=== PATIENT | female | born 1950 | race Caucasian/White ===

== ENCOUNTER → 2017-03-10 | Outpatient (REF) | payer MEDICARE, OTHER | LOC: M LABDRAW1 14:38 | DX: E04.1 Nontoxic single thyroid nodule (principal) | CPT/HCPCS: 88173 ==

== ENCOUNTER → 2017-03-20 | Outpatient (CLI) | payer MEDICARE, OTHER | LOC: M RAD 13:00 | DX: E05.20 Thyrotoxicosis with toxic multinodular goiter without thyrotoxic crisis or storm (principal) | CPT/HCPCS: 70490 ==

== ENCOUNTER → 2017-04-24 | Outpatient (CLI) | payer MEDICARE, OTHER ==
[~2017-04-24] MED LIST: PROHANCE 279.3MG/ML 15ML VIAL (A9576) As Ordered
== END ==
LOC: M RAD 10:57
DX: R22.1 Localized swelling, mass and lump, neck (principal)
CPT/HCPCS: A9576

== ENCOUNTER → 2018-04-09 | Outpatient (REF) | payer MEDICARE, OTHER | LOC: M LAB REF 15:47 | PROVIDERS: ATTEND Internal Medicine Endocrinology, Diabetes & Metabolism | DX: E04.2 Nontoxic multinodular goiter (principal) ==

== ENCOUNTER → 2019-01-27 | Outpatient (CLI) | payer MEDICARE, OTHER ==
--- NOTE | 2019-01-27 16:23 | REP ---
Soft-tissue neck CT study without contrast: History: Enlarged thyroid gland. Comparison neck CT study is from March 20, 2017. 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 CT findings: There are surgical clips in the supraclavicular soft tissues of the right side of the neck. The previously noted bilobed right neck perivertebral and supraclavicular mass has been removed. There is no evidence of recurrent adenopathy or mass. Thyroid gland is normal in size and fairly homogeneous. No glottic or subglottic airway lesion is seen. No suprahyoid or infrahyoid adenopathy is seen. No other mass or cyst is observed. Visualized paranasal sinuses are clear. Impression: Previously noted right neck mass has been removed in the interval since the March 20, 2017 prior study. Otherwise unremarkable soft tissue neck CT without contrast. Electronically Signed by Adam Pastrana MD 01/27/2019 04:44 P
== END ==
LOC: M RAD 14:35
PROVIDERS: ATTEND Nurse Practitioner Family
DX: E04.9 Nontoxic goiter, unspecified (principal)

== ENCOUNTER → 2022-01-02 | Outpatient (CLI) | payer MEDICARE, OTHER ==
[~2022-01-02] MED LIST changes: +ISOVUE-370 76% 100ML VIAL As Ordered ONE; -PROHANCE 279.3MG/ML 15ML VIAL (A9576) As Ordered
== END ==
LOC: M RAD 11:10
PROVIDERS: ATTEND Student in an Organized Health Care Education/Training Program
DX: E01.0 Iodine-deficiency related diffuse (endemic) goiter (principal); M47.892 Other spondylosis, cervical region
CPT/HCPCS: 70491; Q9967

== ENCOUNTER → 2022-02-11 | Outpatient (CLI) | payer MEDICARE, OTHER | LOC: M LAB 12:13 | PROVIDERS: ATTEND Internal Medicine Hematology | DX: I82.512 Chronic embolism and thrombosis of left femoral vein (principal) ==

== ENCOUNTER → 2023-07-09 | Outpatient (REF) | payer MEDICARE, OTHER | LOC: M SFHCPLAZ 16:49 | PROVIDERS: ATTEND Physician Assistant Medical | DX: B34.9 Viral infection, unspecified (principal) ==

== ENCOUNTER → 2024-03-12 | Outpatient (REF) | payer MEDICARE, OTHER ==
[2024-03-12 17:07] LABS: BASO # 0.1 10^3/uL (0.0-0.2); BASO % 2.1 % (0.0-1.0); EOS # 0.4 10^3/uL (0.0-0.5); HEMATOCRIT 43.3 % (36.0-47.0); LYMPH # 1.5 10^3/uL (1.5-5.0); LYMPH % 35.7 % (24.0-44.0); MEAN CORPUSCULAR HEMOGLOBIN 30.6 pg (27.0-33.0); MEAN CORPUSCULAR HGB CONC 32.3 g/dl (32.0-36.5); MEAN CORPUSCULAR VOLUME 94.5 fl (80.0-96.0); MONO # 0.4 10^3/uL (0.0-0.8); MONO % 9.3 % (2.0-8.0); NEUTROPHILS # 1.9 10^3/uL (1.5-8.5); NEUTROPHILS % 43.7 % (36.0-66.0); PLATELET COUNT, AUTOMATED 252 10^3/uL (150-450); RED BLOOD COUNT 4.58 10^6/uL (4.00-5.40); WHITE BLOOD COUNT 4.3 10^3/uL (4.0-10.0)
[2024-03-12 17:13] LABS: HEMOGLOBIN A1c 5.6 % (4.0-6.0)
[2024-03-12 17:26] LABS: ALBUMIN 3.5 G/DL (3.2-5.2); ALKALINE PHOSPHATASE 71 U/L (35-104); ALT/SGPT 18 U/L (7.0-40); AST/SGOT 18 U/L (<34); BILIRUBIN,TOTAL 0.5 MG/DL (0.3-1.2); BLOOD UREA NITROGEN 10 MG/DL (9-23); CALCIUM LEVEL 9.7 MG/DL (8.3-10.6); CARBON DIOXIDE LEVEL 31 MMOL/L (20-31); CHLORIDE LEVEL 104 MMOL/L (98-107); CHOLESTEROL LEVEL 219 MG/DL (<200); CREATININE FOR GFR 0.77 MG/DL (0.55-1.30); GLOMERULAR FILTRATION RATE > 60.0 (>39); GLUCOSE, FASTING 84 MG/DL (74-106); HDL CHOLESTEROL 91.2 MG/DL (>40); LDL CHOLESTEROL 112.4 MG/DL (<100); NON-HDL-C 127.8 MG/DL; POTASSIUM SERUM 4.8 MMOL/L (3.5-5.1); SODIUM LEVEL 140 MMOL/L (136-145); TRIGLYCERIDES LEVEL 77 MG/DL (<150)
[2024-03-12 17:29] LABS: FREE T4 1.22 NG/DL (0.89-1.76)
[2024-03-12 17:30] LABS: THYROID STIMULATING HORMONE 2.311 uIU/ML (0.55-4.78); TOTAL 25(OH) VITAMIN D 28.4 NG/ML (20.0-100.0)
== END ==
LOC: M SFHCLERA 09:26
DX: I10 Essential (primary) hypertension (principal); Z23 Encounter for immunization; Z86.018 Personal history of other benign neoplasm; R73.03 Prediabetes; Z13.220 Encounter for screening for lipoid disorders; Z78.0 Asymptomatic menopausal state; D68.51 Activated protein C resistance; Z79.899 Other long term (current) drug therapy

== ENCOUNTER 2024-05-21 10:19 | Day surgery (SDC) | payer MEDICARE, OTHER ==
[~2024-05-21] VITALS: Ht 170.2 cm; Wt 63.4 kg
[~2024-05-21 10:19] MED LIST changes: +ACET650T15 PO; +ATEN100T PO; +CALC600T61 PO; +ELIQ5TAB PO; +GABA-1171 PO; +GABA-1172 PO; -ISOVUE-370 76% 100ML VIAL As Ordered ONE; +LAXA15TA PO; +MELA5TAB20 PO
[2024-05-21] MEDS ORDERED: LIDOCAINE 2% 100MG/5ML SDV (FOR ANES.) As Ordered ONE (11:31)
[2024-05-21] MEDS ORDERED: propofoL 200 MG/20 ML VIAL As Ordered ONE (11:31)
[2024-05-21] MEDS ORDERED: fentaNYL 100 MCG/2 ML INJECTION As Ordered ONE (12:35)
[2024-05-21 13:50] VITALS: BP 138/98; O2SAT 97
== END 2024-05-21 13:56 | disposition home or self-care (01) ==
LOC: M OPP 10:19
PROVIDERS: ATTEND Surgery
DX: Z12.11 Encounter for screening for malignant neoplasm of colon (principal); K57.30 Diverticulosis of large intestine without perforation or abscess without bleeding; K64.0 First degree hemorrhoids; Z80.0 Family history of malignant neoplasm of digestive organs; Z79.01 Long term (current) use of anticoagulants; K29.70 Gastritis, unspecified, without bleeding; K44.9 Diaphragmatic hernia without obstruction or gangrene; R13.10 Dysphagia, unspecified; Z88.8 Allergy status to other drugs, medicaments and biological substances; Z79.899 Other long term (current) drug therapy
CPT/HCPCS: 43239; 88305; G0105; J3010

== ENCOUNTER → 2024-10-01 | Outpatient (REF) | payer MEDICARE, OTHER ==
[~2024-10-01] MED LIST changes: +ACET-1515 PO; -ACET650T15 PO
[2024-10-01 17:23] LABS: ESTIMATED AVERAGE GLUCOSE 114.0 MG/DL (60-110)
[2024-10-01 17:28] LABS: CHOLESTEROL LEVEL 213.0 MG/DL (<200); CHOLESTEROL RISK RATIO 2.43 (<5); LDL CHOLESTEROL 109.7 MG/DL (<100); NON-HDL-C 125.5 MG/DL; TRIGLYCERIDES LEVEL 79.0 MG/DL (<150)
== END ==
LOC: M SFHCLERA 09:30
DX: R73.01 Impaired fasting glucose (principal); E78.00 Pure hypercholesterolemia, unspecified

== ENCOUNTER → 2024-11-05 | Outpatient (CLI) | payer MEDICARE, OTHER | LOC: M WHC 11:03 | DX: M81.0 Age-related osteoporosis without current pathological fracture (principal) ==

== ENCOUNTER → 2024-11-09 | Outpatient (REF) | payer MEDICARE, OTHER ==
[2024-11-09 19:34] LABS: CALCIUM LEVEL 9.6 MG/DL (8.3-10.6); CARBON DIOXIDE LEVEL 32.0 MMOL/L (20-31); CHLORIDE LEVEL 101.0 MMOL/L (98-107); CREATININE FOR GFR 0.71 MG/DL (0.55-1.30); GLOMERULAR FILTRATION RATE 89.7 (>39); POTASSIUM SERUM 3.9 MMOL/L (3.5-5.1); SODIUM LEVEL 139.0 MMOL/L (136-145)
[2024-11-09 19:37] LABS: TOTAL 25(OH) VITAMIN D 24.1 NG/ML (20.0-100.0)
== END ==
LOC: M SFHCLERA 13:04
PROVIDERS: ATTEND Internal Medicine
DX: M81.0 Age-related osteoporosis without current pathological fracture (principal)

== ENCOUNTER → 2024-11-24 | Outpatient (REF) | payer MEDICARE, OTHER ==
[2024-11-26 14:37] LABS: HPV APTIMA Not Detected (Not Detected)
== END ==
LOC: M SFHCWAGY 12:59
PROVIDERS: ATTEND Nurse Practitioner Family
DX: Z12.4 Encounter for screening for malignant neoplasm of cervix (principal)
CPT/HCPCS: 87624; G0123

== ENCOUNTER → 2024-11-24 | Outpatient (CLI) | payer MEDICARE, OTHER | LOC: M WHC 11:47 | PROVIDERS: ATTEND Nurse Practitioner Family | DX: Z12.31 Encounter for screening mammogram for malignant neoplasm of breast (principal); R92.323 Mammographic fibroglandular density, bilateral breasts ==

== ENCOUNTER → 2024-12-27 | Outpatient (CLI) | payer MEDICARE, OTHER ==
[~2024-12-27] MED LIST changes: +E-Z-GAS II EFFERVESCENT PACKET (SODIUM BICARB./CITRIC ACID/SIMETHICONE) As Ordered ONE; +E-Z-HD 98% w/w 340 GM SUSP BTL As Ordered ONE; +E-Z-PAQUE 96% w/w SUSP 176 GM BTL As Ordered ONE
== END ==
LOC: M RAD 10:14
PROVIDERS: ATTEND Physician Assistant
DX: R13.10 Dysphagia, unspecified (principal); K21.9 Gastro-esophageal reflux disease without esophagitis; K22.89 Other specified disease of esophagus